=== PATIENT | male | born 1990 | race Caucasian/White ===

== ENCOUNTER 2018-01-15 16:03 | Emergency (ER) | payer MEDICAID ==
[2018-01-15 16:07] VITALS: Ht 180.3 cm
[2018-01-15 17:04] VITALS: BP 138/55
== END 2018-01-15 17:04 | disposition home or self-care (01) ==
LOC: ED 16:03
DX: T63.481A Toxic effect of venom of other arthropod, accidental (unintentional), initial encounter (principal); Y92.89 Other specified places as the place of occurrence of the external cause